=== PATIENT | female | born 1960 | race American Indian/Alaskan Native ===

== ENCOUNTER 2017-12-15 07:27 | Emergency (ER) | payer OTHER ==
[2017-12-15 08:16] LABS: Hematocrit 40.6 % (30.3-42.9); Hemoglobin 13.4 gm/dl (10.1-14.3); Mean Corpuscular HGB Conc 33 % (30-34); Mean Corpuscular Hemoglobin 26 pg (28-32); Mean Corpuscular Volume 79 fl (79-97); Platelet Count 284 K/mm3 (140-440); Red Blood Count 5.13 M/mm3 (3.65-5.03); Red Cell Distribution Width 14.1 % (13.2-15.2)
[2017-12-15 08:32] LABS: Alanine Aminotransferase 10 units/L (7-56); Albumin 3.8 g/dL (3.9-5); BUN/Creatinine Ratio 22; Blood Urea Nitrogen 13 mg/dL (7-17); Hemolysis Index 5
--- NOTE | 2017-12-15 08:33 | Cat Scan Report ---
CT HEAD WITHOUT CONTRAST: HISTORY: Headache, dizziness. TECHNIQUE: Sequential 2.5mm CT images. COMPARISON: none. FINDINGS: Cerebral Parenchyma: Within normal limits. Cerebellum: Within normal limits. Brainstem: Within normal limits. Ventricles: Normal. Sella: Normal. Extra-axial spaces: Normal. Basal Cisterns: Normal. Intracranial Hemorrhage: None. Midline Shift: None. Calvarium: Normal. Sinuses: Normal. Mastoid Air Cells: Normal. Visualized Orbits: Normal. IMPRESSION: Cranial CT scan within normal limits.
[2017-12-15 09:24] LABS: Bilirubin,Urine NEG (Negative); Blood,Urine NEG (Negative); Color,Urine Yellow (Yellow); Mucus,Urine FEW /HPF; Protein,Urine <15 mg/dL mg/dL (Negative); WBC,Urine < 1.0 /HPF (0.0-6.0)
[2017-12-15] MEDS ORDERED: CATAPRES PO ONE (09:58)
[2017-12-15] MEDS ORDERED: MOTRIN PO ONE (09:58)
--- NOTE | 2017-12-15 10:04 | Emergency Department Report ---
ED General Adult HPI - General Chief complaint: Headache Stated complaint: HEADACHE Time Seen by Provider: 12/15/17 09:44 Source: patient Mode of arrival: Ambulatory Limitations: No Limitations - History of Present Illness Initial comments: Is a 57-year-old female with no significant known past medical history who is complaining of generalized headache for the past week. Patient states it waxes and wanes but at its worst is 10 out of 10 currently is 7 out of 10. She states is pounding headache. Patient denies any chest pain shortness of breath nausea vomiting diarrhea decreased vision and decreased ability to move her extremities. Patient states she at times is somewhat dizzy and does have some blurred vision. - Related Data Previous Rx's Medication Instructions Recorded Last Taken Type Acetaminophen/Codeine [Tylenol #3] 1 tab PO Q6H PRN #10 tab 08/14/15 Unknown Rx Benzonatate [Tessalon Perles] 100 mg PO Q8HR #15 capsule 08/14/15 Unknown Rx guaiFENesin [Mucinex] 600 mg PO Q6HR #15 tablet.er 08/14/15 Unknown Rx Amlodipine Besylate [Norvasc] 5 mg PO DAILY #30 tablet 12/15/17 Unknown Rx Ibuprofen [Motrin] 600 mg PO Q8H PRN #15 tablet 12/15/17 Unknown Rx Allergies Allergy/AdvReac Type Severity Reaction Status Date / Time tramadol Allergy Unknown Verified 12/15/17 07:39 ED Review of Systems ROS: Stated complaint: HEADACHE Other details as noted in HPI Comment: All other systems reviewed and negative ED Past Medical Hx - Past Medical History Previous Medical History?: No - Surgical History Past Surgical History?: No - Social History Smoking Status: Never Smoker Substance Use Type: None - Medications Home Medications: Home Medications Medication Instructions Recorded Confirmed Last Taken Type Acetaminophen/Codeine [Tylenol #3] 1 tab PO Q6H PRN #10 tab 08/14/15 Unknown Rx Benzonatate [Tessalon Perles] 100 mg PO Q8HR #15 capsule 08/14/15 Unknown Rx guaiFENesin [Mucinex] 600 mg PO Q6HR #15 tablet.er 08/14/15 Unknown Rx Amlodipine Besylate [Norvasc] 5 mg PO DAILY #30 tablet 12/15/17 Unknown Rx Ibuprofen [Motrin] 600 mg PO Q8H PRN #15 tablet 12/15/17 Unknown Rx ED Physical Exam - General Limitations: No Limitations General appearance: alert, in no apparent distress - Head Head exam: Present: atraumatic, normocephalic - Eye Eye exam: Present: normal appearance - ENT ENT exam: Present: mucous membranes moist - Neck Neck exam: Present: normal inspection - Respiratory Respiratory exam: Present: normal lung sounds bilaterally. Absent: respiratory distress - Cardiovascular Cardiovascular Exam: Present: regular rate, normal rhythm. Absent: systolic murmur, diastolic murmur, rubs, gallop - GI/Abdominal GI/Abdominal exam: Present: soft, normal bowel sounds - Extremities Exam Extremities exam: Present: normal inspection - Back Exam Back exam: Present: normal inspection - Neurological Exam Neurological exam: Present: alert, oriented X3 - Psychiatric Psychiatric exam: Present: normal affect, normal mood - Skin Skin exam: Present: warm, dry, intact, normal color. Absent: rash ED Course Vital Signs 12/15/17 07:40 Temperature 98.8 F Pulse Rate 78 Respiratory 18 Rate Blood Pressure 172/89 O2 Sat by Pulse 98 Oximetry ED Medical Decision Making - Lab Data Result diagrams: 12/15/17 07:59 12/15/17 07:59 - EKG Data -: EKG Interpreted by Nm - EKG Data Interpretation: other (EKG shows sinus rhythm a rate of 74 normal axis intervals no ST segment elevation or depressions time of interpretation is 755) - Medical Decision Making Patient on review of her labs shows no acute abnormality there was elevated blood pressure which was treated here in the emergency department. Patient will be referred to primary care was started on low-dose Norvasc and will be discharged home. Critical care attestation.: If time is entered above; I have spent that time in minutes in the direct care of this critically ill patient, excluding procedure time. ED Disposition Clinical Impression: Hypertensive urgency Disposition: DC-01 TO HOME OR SELFCARE Is pt being admited?: No Does the pt Need Aspirin: No Condition: Stable Instructions: Hypertension (ED) Prescriptions: Amlodipine Besylate [Norvasc] 5 mg PO DAILY #30 tablet Ibuprofen [Motrin] 600 mg PO Q8H PRN #15 tablet PRN Reason: Pain Referrals: JHON BLAND MD [Staff Physician] - 3-5 Days
[2017-12-15 10:12] VITALS: BP 172/88
== END 2017-12-15 10:12 | disposition home or self-care (01) ==
LOC: ED 07:27
DX: I10 Essential (primary) hypertension (principal); Z88.8 Allergy status to other drugs, medicaments and biological substances
CPT/HCPCS: 36415; 70450; 80053; 81001; 84703; 85027; 93005; 93010

== ENCOUNTER 2020-05-14 11:56 | Emergency (ER) | payer SELFPAY ==
--- NOTE | 2020-05-14 13:36 | Event Note ---
ED Screening Note ED Screening Note: left sided CP that began at 4 AM this morning states intermittent sharp pain radiates down left arm no n/v/d +headache no cough no leg swelling no sob pmhx none allergy: tramadol occ ETOH non smoker This initial assessment/diagnostic orders/clinical plan/treatment(s) is/are subject to change based on patients health status, clinical progression and re- assessment by fellow clinical providers in the ED. Further treatment and workup at subsequent clinical providers discretion. Patient/guardian urged not to elope from the ED as their condition may be serious if not clinically assessed and managed. Initial orders include: CP protocol
[2020-05-14 14:32] LABS: Basophils # (Auto) 0.1 K/mm3 (0.0-0.1); Basophils % (Auto) 0.6 % (0.0-1.8); Eosinophils # (Auto) 0.4 K/mm3 (0.0-0.4); Eosinophils % (Auto) 3.4 % (0.0-4.3); Hematocrit 41.3 % (30.3-42.9); Hemoglobin 13.5 gm/dl (10.1-14.3); Lymphocytes # (Auto) 2.8 K/mm3 (1.2-5.4); Lymphocytes % (Auto) 26.3 % (13.4-35.0); Mean Corpuscular HGB Conc 33 % (30-34); Mean Corpuscular Volume 81 fl (79-97); Monocytes # (Auto) 0.7 K/mm3 (0.0-0.8); Monocytes % (Auto) 6.8 % (0.0-7.3); Platelet Count 297 K/mm3 (140-440); Red Blood Count 5.09 M/mm3 (3.65-5.03); Red Cell Distribution Width 13.8 % (13.2-15.2)
--- NOTE | 2020-05-14 14:34 | XRay Report ---
CHEST 2 VIEWS INDICATION / CLINICAL INFORMATION: Chest Pain. COMPARISON: None available. FINDINGS: SUPPORT DEVICES: None. HEART / MEDIASTINUM: No significant abnormality. LUNGS / PLEURA: No significant pulmonary or pleural abnormality. No pneumothorax. ADDITIONAL FINDINGS: No significant additional findings. IMPRESSION: No significant abnormality Signer Name: David Moreau MD FACR Signed: 05/14/2020 2:30 PM Workstation Name: [id number]
[2020-05-14 14:48] LABS: Alanine Aminotransferase 14 units/L (7-56); Blood Urea Nitrogen 12 mg/dL (7-17); Calcium 9.1 mg/dL (8.4-10.2); Hemolysis Index 5
[2020-05-14 14:52] LABS: BUN/Creatinine Ratio 24
[2020-05-14] MEDS ORDERED: IBUPROFEN 600 MG TAB PO ONE (15:54)
[2020-05-14] MEDS ORDERED: cloNIDine 0.1 MG TAB PO ONE (19:35)
--- NOTE | 2020-05-14 19:40 | Emergency Department Report ---
ED Chest Pain HPI - General Chief Complaint: Chest Pain Stated Complaint: CHEST PAIN, HEADACHE Time Seen by Provider: 05/14/20 13:34 Source: patient Mode of arrival: Ambulatory Limitations: No Limitations - History of Present Illness Initial Comments: Patient is 60 years old female with history of hypertension, noncompliant with her medication. Patient presented to the ER complaining of chest pain, left- sided with radiation to the left upper extremity. Patient also complaining of headache on and off. Patient denied any focal weakness, numbness or tingling sensation. No shortness of breath. Patient stated that she does not remember the last time she took her blood pressure medicine. Patient blood pressure in triage is 202/98. MD Complaint: chest pain -: days(s) (2) Onset: during rest Pain Location: left chest Pain Radiation: LUE Severity scale (0 -10): 7 Quality: heaviness Consistency: intermittent - Related Data Previous Rx's Medication Instructions Recorded Last Taken Type Acetaminophen/Codeine [Tylenol #3] 1 tab PO Q6H PRN #10 tab 08/14/15 Unknown Rx Benzonatate [Tessalon Perles] 100 mg PO Q8HR #15 capsule 08/14/15 Unknown Rx guaiFENesin [Mucinex] 600 mg PO Q6HR #15 tablet.er 08/14/15 Unknown Rx Amlodipine Besylate [Norvasc] 5 mg PO DAILY #30 tablet 12/15/17 Unknown Rx Ibuprofen [Motrin] 600 mg PO Q8H PRN #15 tablet 12/15/17 Unknown Rx Allergies Allergy/AdvReac Type Severity Reaction Status Date / Time tramadol Allergy Unknown Verified 12/15/17 07:39 Heart Score - HEART Score History: Moderately suspicious EKG: Non-specific Age: 45-65 Risk factors: 1-2 risk factors Troponin: < normal limit HEART Score: 4 - Critical Actions Critical Actions: 4-6 pts:12-16.6% risk of adverse cardiac event. Should be admitted ED Review of Systems ROS: Stated complaint: CHEST PAIN, HEADACHE Other details as noted in HPI Comment: All other systems reviewed and negative Constitutional: denies: chills, fever Respiratory: denies: cough, shortness of breath, SOB with exertion Cardiovascular: chest pain. denies: palpitations Gastrointestinal: denies: abdominal pain, nausea, vomiting Musculoskeletal: denies: back pain Neurological: headache. denies: weakness, numbness, paresthesias, confusion, abnormal gait ED Past Medical Hx - Past Medical History Previous Medical History?: No - Surgical History Past Surgical History?: No - Social History Smoking Status: Never Smoker Substance Use Type: None - Medications Home Medications: Home Medications Medication Instructions Recorded Confirmed Last Taken Type Acetaminophen/Codeine [Tylenol #3] 1 tab PO Q6H PRN #10 tab 08/14/15 Unknown Rx Benzonatate [Tessalon Perles] 100 mg PO Q8HR #15 capsule 08/14/15 Unknown Rx guaiFENesin [Mucinex] 600 mg PO Q6HR #15 tablet.er 08/14/15 Unknown Rx Amlodipine Besylate [Norvasc] 5 mg PO DAILY #30 tablet 12/15/17 Unknown Rx Ibuprofen [Motrin] 600 mg PO Q8H PRN #15 tablet 12/15/17 Unknown Rx ED Physical Exam - General Limitations: No Limitations General appearance: alert, in no apparent distress - Head Head exam: Present: atraumatic, normocephalic, normal inspection - Eye Eye exam: Present: normal appearance - ENT ENT exam: Present: normal exam, normal orophraynx, mucous membranes moist - Neck Neck exam: Present: normal inspection, full ROM. Absent: tenderness, meningismus, lymphadenopathy, thyromegaly - Respiratory Respiratory exam: Present: normal lung sounds bilaterally - Cardiovascular Cardiovascular Exam: Present: regular rate, normal rhythm, normal heart sounds - GI/Abdominal GI/Abdominal exam: Present: soft, normal bowel sounds. Absent: distended, tenderness, guarding, rebound, rigid, organomegaly, mass, bruit, pulsatile mass - Extremities Exam Extremities exam: Present: normal inspection, full ROM, normal capillary refill. Absent: pedal edema, calf tenderness - Back Exam Back exam: Present: normal inspection, full ROM. Absent: CVA tenderness (R), CVA tenderness (L) - Neurological Exam Neurological exam: Present: alert, oriented X3, CN II-XII intact, normal gait, reflexes normal. Absent: motor sensory deficit - Psychiatric Psychiatric exam: Present: normal mood - Skin Skin exam: Present: warm, intact, normal color ED Course Vital Signs 05/14/20 05/14/20 05/14/20 12:29 13:36 19:22 Temperature 98.1 F Pulse Rate 91 H 85 47 L Respiratory 14 16 12 Rate Blood Pressure 202/98 Blood Pressure 186/85 [Right] O2 Sat by Pulse 98 100 97 Oximetry 05/14/20 05/14/20 05/14/20 19:31 19:38 19:45 Temperature Pulse Rate 71 74 65 Respiratory 20 21 Rate Blood Pressure 171/85 171/85 171/85 Blood Pressure [Right] O2 Sat by Pulse 97 97 Oximetry 05/14/20 05/14/20 05/14/20 20:00 20:15 20:30 Temperature Pulse Rate 66 61 60 Respiratory 24 19 23 Rate Blood Pressure 147/77 147/77 113/61 Blood Pressure [Right] O2 Sat by Pulse 96 100 81 L Oximetry 05/14/20 05/14/20 05/14/20 20:45 21:00 21:15 Temperature Pulse Rate 59 L 59 L 65 Respiratory 20 21 18 Rate Blood Pressure 113/61 109/58 109/58 Blood Pressure [Right] O2 Sat by Pulse 100 88 99 Oximetry 05/14/20 05/14/20 05/14/20 21:30 21:45 22:00 Temperature Pulse Rate 59 L 56 L 67 Respiratory 19 16 24 Rate Blood Pressure 108/57 108/57 109/68 Blood Pressure [Right] O2 Sat by Pulse 98 100 96 Oximetry ED Medical Decision Making - Lab Data Result diagrams: 05/14/20 13:40 05/14/20 13:40 - EKG Data -: EKG Interpreted by Nc EKG shows normal: sinus rhythm Rate: normal - EKG Data Interpretation: no acute changes - Radiology Data Radiology results: report reviewed - Medical Decision Making Patient is 60 years old female with history of hypertension, noncompliant with her medication. Patient presented to the ER complaining of chest pain, left-si ded with radiation to the left upper extremity. Patient also complaining of headache on and off. Patient denied any focal weakness, numbness or tingling sensation. No shortness of breath. Patient stated that she does not remember the last time she took her blood pressure medicine. Patient blood pressure in triage is 202/98. EKG is unremarkable. Chest x-ray is negative for acute finding. Labs reviewed and is negative including troponin x2. Patient received clonidine 0.2 mg and with the reduction of blood pressure patient symptoms completely resolved. Patient currently denying any chest pain or headache. Patient given prescription for amlodipine 5 mg and counseled about blood pressure medication compliance. Patient also advised to return to the ER if she develop any new symptoms. Patient advised to follow-up with her primary care physician for outpatient cardiac work-up. Critical care attestation.: If time is entered above; I have spent that time in minutes in the direct care of this critically ill patient, excluding procedure time. ED Disposition Clinical Impression: Chest pain, Malignant hypertension Disposition: - TO HOME OR SELFCARE Is pt being admited?: No Condition: Stable Instructions: Chest Pain (ED), Hypertension (ED), Hypertension During , [id number], Nonspecific Chest Pain, Adult Referrals: PRIMARY CARE, [Primary Care Provider] - 3-5 Days
[2020-05-14 22:12] VITALS: BP 109/68
== END 2020-05-14 22:58 | disposition home or self-care (01) ==
LOC: ED 11:56
DX: I10 Essential (primary) hypertension (principal); R07.9 Chest pain, unspecified; Z79.899 Other long term (current) drug therapy; Z88.8 Allergy status to other drugs, medicaments and biological substances
CPT/HCPCS: 36415; 71046; 80053; 84484; 85025; 93005

== ENCOUNTER 2021-04-05 08:05 | Emergency (ER) | payer OTHER ==
[2021-04-05] MEDS ORDERED: HYDROcodone/ACETAMINOPHEN 10-325MG TAB PO ONE (08:15)
[2021-04-05] MEDS ORDERED: KETOROLAC 60 MG/2 ML INJ IM ONE (08:15)
[2021-04-05] MEDS ORDERED: predniSONE 20 MG TAB PO ONE (08:15)
--- NOTE | 2021-04-05 08:52 | Emergency Department Report ---
ED Neck Pain/Injury HPI - General Chief Complaint: Neck Pain/Injury Stated Complaint: PULLED MUSCLE IN NECK Time Seen by Provider: 04/05/21 08:15 Source: patient, RN notes reviewed Mode of arrival: Ambulatory Limitations: No Limitations - History of Present Illness Initial Comments: This is a 61-year-old female nontoxic, well nourished in appearance, no acute signs of distress presents to the ED with c/o of right upper back pains that started this morning. Patient denies any radiation of pain. Stated wake up with this pain. Patient denies any trauma. Denies any bladder or bowel instability. Patient denies any urinary symptoms. Pain is worse with movement of neck and improved with rest. Denies any fever, chills, nausea, vomiting, headache, stiff neck, chest pain or shortness of breath. Patient denies any numbness or tingling. Stated allergies to Tramadol. Denies any allergies to [place]. MD Complaint: upper back pain -: This morning Place: home Severity: mild Severity scale (0 -10): 3 Quality: aching Consistency: intermittent Improves With: immobilization Worsens With: movement of neck Associated Symptoms: none. denies: headache, fever, numbness, tingling, weakness, vertigo, difficulty walking, swollen glands, difficulty swallowing, nausea, vomiting - Related Data Previous Rx's Medication Instructions Recorded Last Taken Type Acetaminophen/Codeine [Tylenol #3] 1 tab PO Q6H PRN #10 tab 08/14/15 Unknown Rx Benzonatate [Tessalon Perles] 100 mg PO Q8HR #15 capsule 08/14/15 Unknown Rx guaiFENesin [Mucinex] 600 mg PO Q6HR #15 tablet.er 08/14/15 Unknown Rx Amlodipine Besylate [Norvasc] 5 mg PO DAILY #30 tablet 12/15/17 Unknown Rx Ibuprofen [Motrin] 600 mg PO Q8H PRN #15 tablet 12/15/17 Unknown Rx amLODIPine [Norvasc] 5 mg PO DAILY #30 tab 05/14/20 Unknown Rx Cyclobenzaprine [Flexeril] 10 mg PO QHS PRN #10 tablet 04/05/21 Unknown Rx Naproxen 500 mg PO Q12H PRN #12 tablet 04/05/21 Unknown Rx Allergies Allergy/AdvReac Type Severity Reaction Status Date / Time tramadol Allergy Unknown Verified 12/15/17 07:39 ED Review of Systems ROS: Stated complaint: PULLED MUSCLE IN NECK Other details as noted in HPI Comment: All other systems reviewed and negative Constitutional: denies: chills, fever Eyes: denies: eye pain, eye discharge, vision change ENT: denies: ear pain, throat pain Respiratory: denies: cough, shortness of breath, wheezing Cardiovascular: denies: chest pain, palpitations Endocrine: no symptoms reported Gastrointestinal: denies: abdominal pain, nausea, diarrhea Genitourinary: denies: urgency, dysuria, discharge Musculoskeletal: denies: back pain, joint swelling, arthralgia Skin: denies: rash, lesions Neurological: denies: headache, weakness, paresthesias Psychiatric: denies: anxiety, depression Hematological/Lymphatic: denies: easy bleeding, easy bruising ED Past Medical Hx - Past Medical History Previous Medical History?: Yes Additional medical history: childbirth - Surgical History Past Surgical History?: Yes Additional Surgical History: x 2 - Social History Smoking Status: Never Smoker Substance Use Type: Alcohol - Medications Home Medications: Home Medications Medication Instructions Recorded Confirmed Last Taken Type Acetaminophen/Codeine [Tylenol #3] 1 tab PO Q6H PRN #10 tab 08/14/15 Unknown Rx Benzonatate [Tessalon Perles] 100 mg PO Q8HR #15 capsule 08/14/15 Unknown Rx guaiFENesin [Mucinex] 600 mg PO Q6HR #15 tablet.er 08/14/15 Unknown Rx Amlodipine Besylate [Norvasc] 5 mg PO DAILY #30 tablet 12/15/17 Unknown Rx Ibuprofen [Motrin] 600 mg PO Q8H PRN #15 tablet 12/15/17 Unknown Rx amLODIPine [Norvasc] 5 mg PO DAILY #30 tab 05/14/20 Unknown Rx Cyclobenzaprine [Flexeril] 10 mg PO QHS PRN #10 tablet 04/05/21 Unknown Rx Naproxen 500 mg PO Q12H PRN #12 tablet 04/05/21 Unknown Rx ED Physical Exam - General Limitations: No Limitations General appearance: alert, in no apparent distress - Head Head exam: Present: atraumatic, normocephalic - Eye Eye exam: Present: normal appearance - ENT ENT exam: Present: normal exam, normal orophraynx - Neck Neck exam: Present: normal inspection, full ROM. Absent: tenderness, meningismus, lymphadenopathy - Respiratory Respiratory exam: Present: normal lung sounds bilaterally. Absent: respiratory distress, wheezes, rales, rhonchi, stridor, chest wall tenderness, accessory muscle use, decreased breath sounds, prolonged expiratory - Cardiovascular Cardiovascular Exam: Present: regular rate, normal rhythm, normal heart sounds. Absent: bradycardia, tachycardia, irregular rhythm, systolic murmur, diastolic murmur, rubs, gallop - Extremities Exam Extremities exam: Present: normal inspection, full ROM, normal capillary refill. Absent: tenderness - Back Exam Back exam: Present: normal inspection, full ROM, paraspinal tenderness (right cervical paraspinal). Absent: tenderness, CVA tenderness (R), CVA tenderness (L), muscle spasm, vertebral tenderness, rash noted - Neurological Exam Neurological exam: Present: alert, oriented X3, normal gait - Psychiatric Psychiatric exam: Present: normal affect, normal mood - Skin Skin exam: Present: warm, dry, intact, normal color. Absent: rash ED Course Vital Signs 04/05/21 04/05/21 08:14 09:13 Temperature 98.1 F Pulse Rate 75 Respiratory 20 20 Rate Blood Pressure 168/98 O2 Sat by Pulse 99 Oximetry - Reevaluation(s) Reevaluation #1: 04/05/21 08:51 Patient is speaking in full sentences with no signs of distress noted. ED Medical Decision Making - Medical Decision Making This is a 61-year-old female that presents with upper back strain. Patient is stable was examined by me. There is no spinal tenderness. There is no cauda equina syndrome during examination. No bladder or bowel instability. Patient received Toradol 60 mg IM, prednisone and [place] in the ED which stated that her symptoms has resolved and subsided. Stated family member will drive patient home after discharge due to possible drowsiness of [place]. Patient is discharged with muscle relaxant and naproxen. Patient was instructed not to operate any machinery while taking muscle relaxant as they cause her drowsiness. Patient was referred to Follow-up with a primary care doctor in 3-5 days or if symptoms worsen and continue return to emergency room as soon as possible. At time of discharge, the patient does not seem toxic or ill in appearance. No acute signs of distress noted. Patient agrees to discharge treatment plan of care. No further questions noted by the patient. This chart is dictated with using [employer] Critical care attestation.: If time is entered above; I have spent that time in minutes in the direct care of this critically ill patient, excluding procedure time. ED Disposition Clinical Impression: Upper back pain on right side Disposition: HOME / SELF CARE / HOMELESS Is pt being admited?: No Does the pt Need Aspirin: No Condition: Stable Instructions: Acute Back Pain, Adult Additional Instructions: Follow-up with your primary care doctor in 3-5 days or if symptoms worsen such as bladder or bowel stability, chest pain, short of breath, numbness or tingling sensation in extremities, headache, dizziness, visual changes, nausea vomiting, or abdominal pain, return back to emergency room as was possible. Take naproxen and Flexeril as prescribed. Do not operate heavy machinery while taking Flexeril due to sedation Prescriptions: Cyclobenzaprine [Flexeril] 10 mg PO QHS PRN #10 tablet PRN Reason: Muscle Spasm Naproxen 500 mg PO Q12H PRN #12 tablet PRN Reason: Pain , Severe (7-10) Referrals: PRIMARY CAREMD [Referring] - 3-5 Days ANA TAYLOR MD [Staff Physician] - 3-5 Days Forms: Work/School Release Form(ED) Time of Disposition: 09:48
[2021-04-05 10:11] VITALS: BP 169/89
== END 2021-04-05 10:02 | disposition home or self-care (01) ==
LOC: ED 08:05
DX: M54.6 Pain in thoracic spine (principal); Z88.5 Allergy status to narcotic agent; F10.20 Alcohol dependence, uncomplicated
CPT/HCPCS: 96372; 99282; J1885; J7512

== ENCOUNTER 2021-10-14 09:39 | Emergency (ER) | payer SELFPAY ==
[2021-10-14 10:26] LABS: Basophils # (Auto) 0.2 K/mm3 (0.0-0.1); Basophils % (Auto) 1.3 % (0.0-1.8); Eosinophils # (Auto) 0.4 K/mm3 (0.0-0.4); Eosinophils % (Auto) 3.1 % (0.0-4.3); Hematocrit 40.4 % (30.3-42.9); Hemoglobin 12.9 gm/dl (10.1-14.3); Mean Corpuscular HGB Conc 32 % (30-34); Mean Corpuscular Volume 81 fl (79-97); Monocytes % (Auto) 7.5 % (0.0-7.3); Platelet Count 332 K/mm3 (140-440); Red Cell Distribution Width 13.8 % (13.2-15.2)
[2021-10-14 10:42] LABS: Alanine Aminotransferase 13 units/L (7-56); BUN/Creatinine Ratio 19; Blood Urea Nitrogen 15 mg/dL (7-17); Calcium 9.2 mg/dL (8.4-10.2); Hemolysis Index 5
--- NOTE | 2021-10-14 11:17 | XRay Report ---
CHEST 2 VIEWS INDICATION: sob- soft tissue/mass above right clav.. COMPARISON: 05/14/2020 FINDINGS: SUPPORT DEVICES: None. HEART: Within normal limits. LUNGS/PLEURA: No acute air space or interstitial disease. No pneumothorax. ADDITIONAL FINDINGS: None. IMPRESSION: 1. No acute findings. 2. No gross soft tissue mass visualized over the right clavicle but if there is high clinical concern consider follow-up ultrasound or CT. Signer Name: Dimas Resendiz MD Signed: 10/14/2021 11:12 AM Workstation Name: [id number]
--- NOTE | 2021-10-14 11:46 | Emergency Department Report ---
ED General Adult HPI - General Chief complaint: Chest Pain Stated complaint: UPPER CHEST/COUGH PUI?: Yes Time Seen by Provider: 10/14/21 09:54 Source: patient Mode of arrival: Ambulatory Limitations: No Limitations - History of Present Illness Initial comments: Patient is a 61-year-old female that comes to the emergency room with a cough. She has chest pain only with the coughing. She denies any shortness of breath. She is not immunized for Covid. She has not seen her primary care doctor. She has been taking koyq-ijh-cicaawi meds without relief so she comes to the emergency room -: Gradual, days(s) Location: chest Severity scale (0 -10): 0 Consistency: intermittent Improves with: none Worsens with: none Associated Symptoms: denies other symptoms, cough Treatments Prior to Arrival: none - Related Data Previous Rx's Medication Instructions Recorded Last Taken Type amLODIPine [Norvasc] 5 mg PO DAILY #30 tab 05/14/20 Unknown Rx Azithromycin [Zithromax Z-ADAN] 250 mg PO DAILY #6 tablet 10/14/21 Unknown Rx Benzonatate [Tessalon Perles] 100 mg PO Q12H PRN #20 capsule 10/14/21 Unknown Rx Fluticasone [Flonase] 1 spray NS QDAY #1 bottle 10/14/21 Unknown Rx methylPREDNISolone [Medrol 4MG 4 mg PO FS #1 tab.ds.pk 10/14/21 Unknown Rx DOSEPAK (21 tabs)] Allergies Allergy/AdvReac Type Severity Reaction Status Date / Time tramadol Allergy Unknown Verified 12/15/17 07:39 ED Review of Systems ROS: Stated complaint: UPPER CHEST/COUGH Other details as noted in HPI Comment: All other systems reviewed and negative ED Past Medical Hx - Past Medical History Previous Medical History?: Yes Additional medical history: childbirth - Surgical History Past Surgical History?: Yes Additional Surgical History: x 2 - Family History Family history: no significant - Social History Smoking Status: Never Smoker Substance Use Type: None - Medications Home Medications: Home Medications Medication Instructions Recorded Confirmed Last Taken Type amLODIPine [Norvasc] 5 mg PO DAILY #30 tab 05/14/20 Unknown Rx Azithromycin [Zithromax Z-ADAN] 250 mg PO DAILY #6 tablet 10/14/21 Unknown Rx Benzonatate [Tessalon Perles] 100 mg PO Q12H PRN #20 capsule 10/14/21 Unknown Rx Fluticasone [Flonase] 1 spray NS QDAY #1 bottle 10/14/21 Unknown Rx methylPREDNISolone [Medrol 4MG 4 mg PO FS #1 tab.ds.pk 10/14/21 Unknown Rx DOSEPAK (21 tabs)] ED Physical Exam - General Limitations: No Limitations General appearance: alert, in no apparent distress - Head Head exam: Present: atraumatic, normocephalic - Eye Eye exam: Present: normal appearance - ENT ENT exam: Present: mucous membranes moist - Neck Neck exam: Present: normal inspection - Respiratory Respiratory exam: Present: normal lung sounds bilaterally. Absent: respiratory distress - Cardiovascular Cardiovascular Exam: Present: regular rate, normal rhythm. Absent: systolic murmur, diastolic murmur, rubs, gallop - GI/Abdominal GI/Abdominal exam: Present: soft, normal bowel sounds - Extremities Exam Extremities exam: Present: normal inspection - Back Exam Back exam: Present: normal inspection - Neurological Exam Neurological exam: Present: alert, oriented X3 - Psychiatric Psychiatric exam: Present: normal affect, normal mood - Skin Skin exam: Present: warm, dry, intact, normal color. Absent: rash ED Course Vital Signs 10/14/21 10/14/21 10/14/21 09:52 10:16 11:54 Temperature 98.4 F Pulse Rate 86 Respiratory 16 18 Rate Blood Pressure Blood Pressure 165/83 [Left] O2 Sat by Pulse 98 98 99 Oximetry 10/14/21 10/14/21 12:01 13:06 Temperature Pulse Rate 78 Respiratory 16 Rate Blood Pressure 147/64 Blood Pressure 138/74 [Left] O2 Sat by Pulse 98 99 Oximetry ED Medical Decision Making - Lab Data Result diagrams: 10/14/21 10:02 10/14/21 10:02 - EKG Data EKG shows normal: sinus rhythm Rate: normal - EKG Data When compared to previous EKG there are: no significant change Interpretation: no acute changes - Radiology Data Radiology results: report reviewed, image reviewed interpreted by me: Concern for atelectasis/bilateral lower lobe infiltrates No acute process - Medical Decision Making Lab Results 10/14/21 10/14/21 Range/Units 10:02 10:02 WBC 13.5 H (4.5-11.0) K/mm3 RBC 5.00 (3.65-5.03) M/mm3 Hgb 12.9 (10.1-14.3) gm/dl Hct 40.4 (30.3-42.9) % MCV 81 (79-97) fl MCH 26 L (28-32) pg MCHC 32 (30-34) % RDW 13.8 (13.2-15.2) % Plt Count 332 (140-440) K/mm3 Lymph % (Auto) 15.0 (13.4-35.0) % Hanson % (Auto) 7.5 H (0.0-7.3) % Eos % (Auto) 3.1 (0.0-4.3) % Baso % (Auto) 1.3 (0.0-1.8) % Lymph # (Auto) 2.0 (1.2-5.4) K/mm3 Hanson # (Auto) 1.0 H (0.0-0.8) K/mm3 Eos # (Auto) 0.4 (0.0-0.4) K/mm3 Baso # (Auto) 0.2 H (0.0-0.1) K/mm3 Seg Neutrophils % 73.1 H (40.0-70.0) % Seg Neutrophils # 9.9 H (1.8-7.7) K/mm3 Sodium 139 (137-145) mmol/L Potassium 3.7 (3.6-5.0) mmol/L Chloride 101.6 (98-107) mmol/L Carbon Dioxide 27 (22-30) mmol/L Anion Gap 14 mmol/L BUN 15 (7-17) mg/dL Creatinine 0.8 (0.6-1.2) mg/dL Estimated GFR > 60 ml/min BUN/Creatinine Ratio 19 % Glucose 112 H (65-100) mg/dL Calcium 9.2 (8.4-10.2) mg/dL Total Bilirubin 0.30 (0.1-1.2) mg/dL AST 10 (5-40) units/L ALT 13 (7-56) units/L Alkaline Phosphatase 127 (35-129) units/L Troponin T < 0.010 (0.00-0.029) ng/mL Total Protein 7.1 (6.3-8.2) g/dL Albumin 4.0 (3.9-5) g/dL Albumin/Globulin Ratio 1.3 % Vital Signs 10/14/21 10/14/21 10/14/21 09:52 10:16 11:54 Temperature 98.4 F Pulse Rate 86 Respiratory 16 18 Rate Blood Pressure Blood Pressure 165/83 [Left] O2 Sat by Pulse 98 98 99 Oximetry 10/14/21 10/14/21 12:01 13:06 Temperature Pulse Rate 78 Respiratory 16 Rate Blood Pressure 147/64 Blood Pressure 138/74 [Left] O2 Sat by Pulse 98 99 Oximetry Labs noted. Leukocytosis noted. X-ray noted INT with 1 g of IV Rocephin given On discharge patient has been updated about plan of care including medications and x-ray findings. She verbalizes understanding of diet, activity, medications and follow-up. Patient is ambulatory, nonill nontoxic and cbi-lcp-emrilaxdz on discharge. She is taking p.o. without difficulty. Patient ambulating without shortness of breath or chest pain. - Differential Diagnosis URI/Covid/ACS Critical care attestation.: If time is entered above; I have spent that time in minutes in the direct care of this critically ill patient, excluding procedure time. ED Disposition Clinical Impression: URI (upper respiratory infection) Qualifiers: URI type: unspecified URI Qualified Code(s): J06.9 - Acute upper respiratory infection, unspecified Disposition: 01 HOME / SELF CARE / HOMELESS Is pt being admited?: No Does the pt Need Aspirin: No Condition: Stable Instructions: Upper Respiratory Infection, Adult, [id number] Additional Instructions: Continue your home medications Meds as ordered today stay well-hydrated with water Motrin or Tylenol for pain or fever Follow-up with primary care in 48 hours to make sure you are getting better Prescriptions: Fluticasone [Flonase] 1 spray NS QDAY #1 bottle methylPREDNISolone [Medrol 4MG DOSEPAK (21 tabs)] 4 mg PO FS #1 tab.ds.pk Benzonatate [Tessalon Perles] 100 mg PO Q12H PRN #20 capsule PRN Reason: Cough Azithromycin [Zithromax Z-ADAN] 250 mg PO DAILY #6 tablet Referrals: ANA TAYLOR MD [Primary Care Provider] - 3-5 Days Time of Disposition: 12:35
[2021-10-14] MEDS: cefTRIAXone/NS 1 GM/50 ML 1 GM/50 ML BAG IV ONE (12:03)
[2021-10-14 13:07] VITALS: BP 138/74
--- NOTE | 2021-10-15 10:27 | Electrocardiograph Report ---
[facility] Test Date: 2021-10-14 Test Time: 09:44:15 Pat Name: JANI HERNANDEZ Department: Room: Gender: F Manager Rental: AZAM : 1960 Requested By: ANTIONE MCKEON Order Number: [id number] Reading MD: Timmy Carmichael Measurements Intervals [place] Rate: 90 P: 52 AK: 149 QRS: -20 QRSD: 74 T: 37 QT: 365 QTc: 448 Interpretive Statements Sinus rhythm Probable left atrial enlargement Low voltage, precordial leads Consider anterior infarct No previous ECG available for comparison Electronically Signed On 10-15-2021 10:27:13 EDT by Timmy Carmichael
== END 2021-10-14 13:07 | disposition home or self-care (01) ==
LOC: ED 09:39
DX: J06.9 Acute upper respiratory infection, unspecified (principal); Z88.5 Allergy status to narcotic agent
CPT/HCPCS: 36415; 71046; 80053; 84484; 85025; 93005; 96365; 99284; J0696